=== PATIENT | female | born 1930 | race Caucasian/White ===

== ENCOUNTER 2018-03-31 15:57 | Inpatient (IN) | payer OTHER, BC ==
[~2018-03-31] VITALS: Ht 160 cm; Wt 80.8 kg
[2018-03-31 17:32] LABS: BASOPHIL (%) 0.2 % (0-1); BASOPHIL COUNT 0.1 K/uL (0-0.1); EOSINOPHIL (%) 0.7 % (0-5); EOSINOPHIL COUNT 0.1 K/uL (0-0.3); HEMATOCRIT 30.2 % (36.0-46.0); HEMOGLOBIN 9.6 G/DL (11.9-15.5); IMMATURE GRANULOCYTE (%) 0.7 % (0.0-0.7); LYMPHOCYTE (%) 6.4 % (15-42); LYMPHOCYTE COUNT 1.3 K/uL (1.0-2.8); MCH 29.4 PG (29.0-34.0); MCHC 31.8 G/DL (30.0-36.0); MCV 92.6 FL (83-99); MONOCYTE (%) 4.8 % (3-12); NEUTROPHIL (%) 87.2 % (45-76); NEUTROPHIL COUNT 18.2 K/uL (1.8-6.4); PLATELET COUNT 548 K/uL (156-360); RBC DIS.WIDTH-CV 16.7 % (11.8-14.6); RBC DIS.WIDTH-SD 56.7 % (39-53); RED BLOOD COUNT 3.26 M/uL (3.80-5.20); WHITE BLOOD COUNT 20.9 K/uL (4.1-10.2)
[2018-03-31 17:46] LABS: INTER. NORMALIZED RATIO 1.4
[2018-03-31 17:49] LABS: PTT 25.3 SEC (25-37)
[2018-03-31 17:56] LABS: CHLORIDE 96 mEq/L (99-109); SODIUM 135 mEq/L (136-147)
[2018-03-31 17:57] LABS: GLUCOSE 77 mg/dL (70-99)
[2018-03-31 18:01] LABS: CREATININE 2.5 mg/dL (0.6-1.3); GFR ESTIMATE (CALCULATED) 19 mL/min/
[2018-03-31 18:02] LABS: UREA NITROGEN (BUN) 22 mg/dL (9-23)
[2018-03-31] MEDS ORDERED: FLOMAX0.4 MG PO (21:02)
[2018-03-31] MEDS ORDERED: SERTRALINE HCL100 MG PO (21:02)
[2018-03-31] MEDS ORDERED: IRON325 M1 PO (21:02)
[2018-03-31] MEDS ORDERED: TRAMADOL HCL50 MG PO (21:04)
[2018-03-31] MEDS ORDERED: LABETALOL HCL200 MG PO (21:06)
[2018-03-31] MEDS ORDERED: NIFEDIPINE ER60 MG PO (21:07)
[2018-03-31] MEDS ORDERED: BASAGLAR K100 UNIT/1 SC (21:32)
[2018-03-31] MEDS ORDERED: ADULT ASPIRIN81 MG PO (21:32)
[2018-03-31] MEDS ORDERED: PROTONIX20 MG PO (21:33)
[2018-03-31] MEDS ORDERED: DILTIAZEM 24HR120 MG PO (21:33)
[2018-03-31] MEDS ORDERED: ASCORBIC ACID500 M3 PO (21:34)
[2018-03-31] MEDS ORDERED: SENNA PLUS TAB1 EACH PO ×2 (21:34)
[2018-03-31] MEDS ORDERED: ERGOCALCIF50000 UNIT PO (21:35)
[2018-03-31] MEDS ORDERED: COLACE100 MG PO (21:36)
[2018-03-31] MEDS ORDERED: ZINC SULFATE220 MG PO (21:36)
[2018-03-31] MEDS ORDERED: OXYCODONE HCL5 M1 PO (21:37)
[2018-03-31] MEDS ORDERED: HYDROCODON-ACE1 EAC7 PO (21:38)
[2018-03-31] MEDS ORDERED: TYLENOL REGULA325 MG PO (21:39)
[2018-03-31 22:38] LABS: ALBUMIN 2.2 g/dL (3.2-4.8)
[2018-03-31 22:39] LABS: AMYLASE 15 IU/L (1-118)
[2018-03-31 22:41] LABS: TOTAL PROTEIN 5.4 g/dL (6.4-8.3)
[2018-03-31 22:43] LABS: TOTAL BILIRUBIN 0.4 mg/dL (0.0-1.0)
[2018-03-31 22:44] LABS: ALKALINE PHOSPHATASE 129 IU/L (3-129); TROP-I INTERPRETATION NEGATIVE; TROPONIN-I 0.07 ng/mL (0.0-0.30)
[2018-03-31 22:46] LABS: AST (GOT) 16 IU/L (2-34); DIRECT BILIRUBIN 0.2 mg/dL (0.0-0.3)
[2018-03-31 22:47] LABS: ALT (GPT) 15 IU/L (3-49); LIPASE 3 U/L (1.0-51.0)
[2018-04-01] VITALS (7 sets, daily range): BP systolic 115–136; BP diastolic 58–76
[2018-04-01 06:16] LABS: BASOPHIL (%) 0.1 % (0-1); EOSINOPHIL (%) 0.1 % (0-5); HEMATOCRIT 31.6 % (36.0-46.0); HEMOGLOBIN 9.6 G/DL (11.9-15.5); LYMPHOCYTE (%) 5.6 % (15-42); LYMPHOCYTE COUNT 1.1 K/uL (1.0-2.8); MCH 29.2 PG (29.0-34.0); MCHC 30.4 G/DL (30.0-36.0); MONOCYTE (%) 5.1 % (3-12); NEUTROPHIL (%) 88.1 % (45-76); NEUTROPHIL COUNT 17.7 K/uL (1.8-6.4); PLATELET COUNT 622 K/uL (156-360); RBC DIS.WIDTH-CV 16.9 % (11.8-14.6); RBC DIS.WIDTH-SD 59.3 % (39-53); RED BLOOD COUNT 3.29 M/uL (3.80-5.20); WHITE BLOOD COUNT 20.1 K/uL (4.1-10.2)
[2018-04-01 06:39] LABS: CHLORIDE 94 MEQ/L (99-109); CREATININE 2.8 MG/DL (0.6-1.3); GFR ESTIMATE (CALCULATED) 17 mL/min/; POTASSIUM 4.5 MEQ/L (3.7-5.4); SODIUM 136 MEQ/L (136-147); UREA NITROGEN (BUN) 25 mg/dL (9-23); VANCOMYCIN, TROUGH 17.6 MCG/ML (10-20)
[2018-04-01 06:49] LABS: GLUCOSE 97 mg/dL (70-99)
[2018-04-01 09:15] LABS: GLUCOSE 105 mg/dL (70-99)
[2018-04-01 15:13] LABS: TROP-I INTERPRETATION NEGATIVE; TROPONIN-I 0.07 ng/mL (0.0-0.30)
[2018-04-02 03:41] VITALS: BP 117/56
[2018-04-02 06:17] LABS: BASOPHIL (%) 0.1 % (0-1); EOSINOPHIL (%) 0.6 % (0-5); EOSINOPHIL COUNT 0.1 K/uL (0-0.3); HEMATOCRIT 27.7 % (36.0-46.0); HEMOGLOBIN 8.6 G/DL (11.9-15.5); IMMATURE GRANULOCYTE (%) 0.7 % (0.0-0.7); LYMPHOCYTE (%) 7.9 % (15-42); LYMPHOCYTE COUNT 1.3 K/uL (1.0-2.8); MCH 29.7 PG (29.0-34.0); MCV 95.5 FL (83-99); MONOCYTE (%) 5.7 % (3-12); MONOCYTE COUNT 0.9 K/uL (0-0.8); NEUTROPHIL COUNT 13.6 K/uL (1.8-6.4); RBC DIS.WIDTH-CV 17.1 % (11.8-14.6); RBC DIS.WIDTH-SD 59.2 % (39-53)
[2018-04-02 06:43] LABS: CHLORIDE 97 MEQ/L (99-109); GFR ESTIMATE (CALCULATED) 25 mL/min/; GLUCOSE 93 mg/dL (70-99); POTASSIUM 3.8 MEQ/L (3.7-5.4); SODIUM 137 MEQ/L (136-147); UREA NITROGEN (BUN) 15 mg/dL (9-23); VANCOMYCIN, TROUGH 23.6 MCG/ML (10-20)
[2018-04-02 07:30] LABS: PLAT.SUFFICIENCY INCREASED; PLATELET CLUMPS PRESENT - PLATELET COUNT APPEARS INCREASED
[2018-04-02 07:32] VITALS: BP 107/55
[2018-04-02 07:45] LABS: PLATELET COUNT UNABLE TO REPORT K/uL (156-360)
[2018-04-02 16:10] VITALS: BP 178/00
[2018-04-02 17:45] VITALS: BP 114/53
[2018-04-02 20:00] VITALS: BP 98/52
[2018-04-03 00:07] VITALS: BP 97/56
[2018-04-03 03:46] VITALS: BP 92/61
[2018-04-03 07:15] VITALS: BP 129/56
[2018-04-03 08:51] LABS: BASOPHIL (%) 0.1 % (0-1); EOSINOPHIL (%) 0.6 % (0-5); EOSINOPHIL COUNT 0.1 K/uL (0-0.3); HEMATOCRIT 27.3 % (36.0-46.0); HEMOGLOBIN 8.3 G/DL (11.9-15.5); IMMATURE GRANULOCYTE (%) 0.9 % (0.0-0.7); LYMPHOCYTE (%) 7.2 % (15-42); LYMPHOCYTE COUNT 1.2 K/uL (1.0-2.8); MCH 28.9 PG (29.0-34.0); MCHC 30.4 G/DL (30.0-36.0); MCV 95.1 FL (83-99); MONOCYTE (%) 5.7 % (3-12); NEUTROPHIL (%) 85.5 % (45-76); NEUTROPHIL COUNT 14.6 K/uL (1.8-6.4); RBC DIS.WIDTH-CV 17.3 % (11.8-14.6); RED BLOOD COUNT 2.87 M/uL (3.80-5.20); WHITE BLOOD COUNT 17.1 K/uL (4.1-10.2)
[2018-04-03 08:54] LABS: PLATELET COUNT 502 K/uL (156-360)
[2018-04-03 09:29] LABS: CHLORIDE 96 MEQ/L (99-109); GFR ESTIMATE (CALCULATED) 16 mL/min/; POTASSIUM 3.5 MEQ/L (3.7-5.4); SODIUM 135 MEQ/L (136-147); UREA NITROGEN (BUN) 20 mg/dL (9-23); VANCOMYCIN, TROUGH 23.1 MCG/ML (10-20)
[2018-04-03 09:34] LABS: CREATININE 2.9 MG/DL (0.6-1.3); GLUCOSE 160 mg/dL (70-99)
[2018-04-03 12:54] VITALS: BP 145/58
[2018-04-03 17:00] VITALS: BP 142/56
[2018-04-03 19:47] VITALS: BP 134/63
[2018-04-04 00:34] VITALS: BP 121/84
[2018-04-04 03:00] VITALS: BP 104/51
[2018-04-04 07:13] LABS: BASOPHIL (%) 0.1 % (0-1); EOSINOPHIL (%) 0.5 % (0-5); EOSINOPHIL COUNT 0.1 K/uL (0-0.3); HEMATOCRIT 29.9 % (36.0-46.0); IMMATURE GRANULOCYTE (%) 1.1 % (0.0-0.7); LYMPHOCYTE (%) 6.2 % (15-42); LYMPHOCYTE COUNT 1.1 K/uL (1.0-2.8); MCH 29.3 PG (29.0-34.0); MCHC 30.1 G/DL (30.0-36.0); MCV 97.4 FL (83-99); MONOCYTE COUNT 1.2 K/uL (0-0.8); NEUTROPHIL (%) 85.1 % (45-76); NRBC (%) 0.2 /100 WBC (0-0); RBC DIS.WIDTH-CV 17.8 % (11.8-14.6); RBC DIS.WIDTH-SD 62.1 % (39-53); RED BLOOD COUNT 3.07 M/uL (3.80-5.20); WHITE BLOOD COUNT 17.6 K/uL (4.1-10.2)
[2018-04-04 07:22] LABS: ALBUMIN 2.1 G/DL (3.2-4.8); ALKALINE PHOSPHATASE 89 IU/L (3-129); ALT (GPT) 11 IU/L (3-49); AST (GOT) 18 IU/L (2-34); CHLORIDE 98 MEQ/L (99-109); GFR ESTIMATE (CALCULATED) 22 mL/min/; POTASSIUM 3.8 MEQ/L (3.7-5.4); SODIUM 138 MEQ/L (136-147); TOTAL BILIRUBIN 0.5 MG/DL (0.0-1.0); TOTAL PROTEIN 5.2 G/DL (6.4-8.3); UREA NITROGEN (BUN) 15 mg/dL (9-23)
[2018-04-04 07:28] LABS: CREATININE 2.2 MG/DL (0.6-1.3); GLUCOSE 91 mg/dL (70-99)
[2018-04-04 07:53] VITALS: BP 105/40
[2018-04-04 08:11] LABS: ANISOCYTOSIS 2+; MACROCYTES 2+; PLAT.SUFFICIENCY INCREASED; PLATELET CLUMPS PRESENT - PLATELET COUNT APPEARS INCREASED
[2018-04-04 08:12] LABS: PLATELET COUNT UNABLE TO REPORT K/uL (156-360)
[2018-04-04 11:07] LABS: C-REACTIVE PROTEIN 203.6 MG/L (0-10)
[2018-04-04 11:35] LABS: URIC ACID 3.4 mg/dL (3.1-9.2)
[2018-04-04 11:37] VITALS: BP 117/51
[2018-04-04 17:02] VITALS: BP 104/58
[2018-04-04 20:00] VITALS: BP 131/63
[2018-04-05] VITALS (17 sets, daily range): BP systolic 108–131; BP diastolic 48–78
[2018-04-05 06:07] LABS: IRON 28 MCG/DL (35-150); TRANSFERRIN SATUR. 30 % (20-55)
[2018-04-06] VITALS (10 sets, daily range): BP systolic 110–148; BP diastolic 49–69
[2018-04-06 05:50] LABS: BASOPHIL (%) 0.2 % (0-1); EOSINOPHIL (%) 1.1 % (0-5); EOSINOPHIL COUNT 0.2 K/uL (0-0.3); HEMATOCRIT 28.6 % (36.0-46.0); HEMOGLOBIN 8.7 G/DL (11.9-15.5); IMMATURE GRANULOCYTE (%) 0.8 % (0.0-0.7); LYMPHOCYTE (%) 8.9 % (15-42); LYMPHOCYTE COUNT 1.2 K/uL (1.0-2.8); MCH 29.8 PG (29.0-34.0); MCHC 30.4 G/DL (30.0-36.0); MCV 97.9 FL (83-99); MONOCYTE (%) 5.6 % (3-12); MONOCYTE COUNT 0.7 K/uL (0-0.8); NEUTROPHIL (%) 83.4 % (45-76); NEUTROPHIL COUNT 11.1 K/uL (1.8-6.4); NRBC (%) 0.5 /100 WBC (0-0); RBC DIS.WIDTH-CV 18.6 % (11.8-14.6); RBC DIS.WIDTH-SD 63.6 % (39-53); RED BLOOD COUNT 2.92 M/uL (3.80-5.20); WHITE BLOOD COUNT 13.3 K/uL (4.1-10.2)
[2018-04-06 05:53] LABS: PLATELET COUNT 115 K/uL (156-360)
[2018-04-06 06:40] LABS: CHLORIDE 97 MEQ/L (99-109); GFR ESTIMATE (CALCULATED) 13 mL/min/; POTASSIUM 4.4 MEQ/L (3.7-5.4); SODIUM 138 MEQ/L (136-147); VANCOMYCIN, TROUGH 26.8 MCG/ML (10-20)
[2018-04-06 06:45] LABS: GLUCOSE 120 mg/dL (70-99); UREA NITROGEN (BUN) 26 mg/dL (9-23)
[2018-04-06 06:46] LABS: CREATININE 3.5 MG/DL (0.6-1.3)
[2018-04-07 04:00] VITALS: BP 119/56
[2018-04-07 09:54] VITALS: BP 139/62
[2018-04-07 12:25] LABS: PREALBUMIN 9.3 mg/dL (10-40)
[2018-04-07 12:29] VITALS: BP 129/59
[2018-04-07 16:35] VITALS: BP 105/54
[2018-04-07 19:49] VITALS: BP 129/63
[2018-04-08 00:15] VITALS: BP 148/67
[2018-04-08 04:22] VITALS: BP 132/59
[2018-04-08 07:05] VITALS: BP 150/83
[2018-04-08 11:21] VITALS: BP 147/69
[2018-04-08 14:58] VITALS: BP 140/67
[2018-04-08 19:45] VITALS: BP 163/72
[2018-04-09] VITALS (8 sets, daily range): BP systolic 111–151; BP diastolic 50–91
[2018-04-10 04:02] VITALS: BP 135/62
[2018-04-10 05:45] LABS: BASOPHIL (%) 0.1 % (0-1); EOSINOPHIL COUNT 0.1 K/uL (0-0.3); HEMATOCRIT 31.4 % (36.0-46.0); HEMOGLOBIN 9.8 G/DL (11.9-15.5); IMMATURE GRANULOCYTE (%) 0.7 % (0.0-0.7); LYMPHOCYTE (%) 7.3 % (15-42); MCH 29.6 PG (29.0-34.0); MCHC 31.2 G/DL (30.0-36.0); MCV 94.9 FL (83-99); MONOCYTE (%) 7.5 % (3-12); NEUTROPHIL (%) 83.4 % (45-76); NEUTROPHIL COUNT 11.3 K/uL (1.8-6.4); NRBC (%) 0.1 /100 WBC (0-0); RBC DIS.WIDTH-CV 19.8 % (11.8-14.6); RBC DIS.WIDTH-SD 65.1 % (39-53); RED BLOOD COUNT 3.31 M/uL (3.80-5.20); WHITE BLOOD COUNT 13.6 K/uL (4.1-10.2)
[2018-04-10 05:46] LABS: PLATELET COUNT 475 K/uL (156-360)
[2018-04-10 06:19] LABS: CHLORIDE 95 MEQ/L (99-109); GFR ESTIMATE (CALCULATED) 11 mL/min/; GLUCOSE 146 mg/dL (70-99); POTASSIUM 5.1 MEQ/L (3.7-5.4); SODIUM 136 MEQ/L (136-147); UREA NITROGEN (BUN) 37 mg/dL (9-23)
[2018-04-10 06:22] LABS: CREATININE 4.2 MG/DL (0.6-1.3)
[2018-04-10 08:13] VITALS: BP 136/70
[2018-04-10 12:52] LABS: GLUCOSE 161 mg/dL (70-99)
[2018-04-10 15:50] VITALS: BP 144/77
[2018-04-10 23:24] VITALS: BP 170/67
[2018-04-11 08:27] VITALS: BP 111/52
[2018-04-11 15:47] VITALS: BP 156/66
[2018-04-11 20:20] VITALS: BP 106/60
[2018-04-11 22:33] VITALS: BP 145/78
[2018-04-12 08:24] VITALS: BP 125/53
[2018-04-12] MEDS ORDERED: DILTIAZEM 24HR240 MG PO (13:09)
[2018-04-12 15:35] VITALS: BP 121/80
== END 2018-04-12 16:22 | disposition hospice, home (50) | DRG 252 ==
LOC: EME 15:57 → CANRESERV 19:17 → 5SOUTH 21:10 → EDOF 21:10 → 4EAST 21:10 → 5SOUTH 22:32 → ENRESERV 04-02 14:08 → 4EAST 04-02 16:34 → ENRESERV 04-09 02:23 → 2EAST 04-09 13:54 → ENPENDDIS 04-12 14:52 → 2EAST 04-12 16:22
PROVIDERS: Emergency Medicine; Hospitalist; Internal Medicine; Internal Medicine Nephrology
PROC: 5A1D70Z Performance of Urinary Filtration, Intermittent, Less than 6 Hours Per Day (ICD-10-PCS; principal; 2018-04-02)
PROC: 047L3ZZ Dilation of Left Femoral Artery, Percutaneous Approach (ICD-10-PCS; 2018-04-02)
PROC: 047N3ZZ Dilation of Left Popliteal Artery, Percutaneous Approach (ICD-10-PCS; 2018-04-02)
PROC: 047D3EZ Dilation of Left Common Iliac Artery with Two Intraluminal Devices, Percutaneous Approach (ICD-10-PCS; 2018-04-02)
PROC: 047J3ZZ Dilation of Left External Iliac Artery, Percutaneous Approach (ICD-10-PCS; 2018-04-02)
PROC: B31H1ZZ Fluoroscopy of Right Upper Extremity Arteries using Low Osmolar Contrast (ICD-10-PCS; 2018-04-05)
DX: E11.52 Type 2 diabetes mellitus with diabetic peripheral angiopathy with gangrene (principal); Z51.5 Encounter for palliative care; I70.222 Atherosclerosis of native arteries of extremities with rest pain, left leg; Z66 Do not resuscitate; I70.0 Atherosclerosis of aorta; E11.22 Type 2 diabetes mellitus with diabetic chronic kidney disease; I12.0 Hypertensive chronic kidney disease with stage 5 chronic kidney disease or end stage renal disease; I48.2 Chronic atrial fibrillation; A41.9 Sepsis, unspecified organism; N18.6 End stage renal disease; L89.320 Pressure ulcer of left buttock, unstageable; L89.150 Pressure ulcer of sacral region, unstageable; L03.116 Cellulitis of left lower limb; L89.813 Pressure ulcer of head, stage 3; M10.9 Gout, unspecified; E11.621 Type 2 diabetes mellitus with foot ulcer; E11.628 Type 2 diabetes mellitus with other skin complications; L97.109 Non-pressure chronic ulcer of unspecified thigh with unspecified severity; E78.5 Hyperlipidemia, unspecified; I80.8 Phlebitis and thrombophlebitis of other sites; M65.9 Synovitis and tenosynovitis, unspecified; L97.529 Non-pressure chronic ulcer of other part of left foot with unspecified severity; K21.9 Gastro-esophageal reflux disease without esophagitis; R11.2 Nausea with vomiting, unspecified; Z99.2 Dependence on renal dialysis; Z85.3 Personal history of malignant neoplasm of breast; Z79.82 Long term (current) use of aspirin; Z79.01 Long term (current) use of anticoagulants; I89.0 Lymphedema, not elsewhere classified
CPT/HCPCS: 73610; 73706; 74175; 80048; 80053; 80076; 80202; 82150; 82948; 83540; 83605; 83690; 84134; 84466; 84484; 84550; 84999; 85025; 85027; 85610; 85730; 86140; 86850; 86900; 86901; 87040; 87070; 87075; 87077; 87186; 87205; 87493; 87801; 93005; 93306; 93971; 94799; 99281; 99285; A6214; C1725; C1769; C1876; C1887; C1894; J0881; J1170; J1644; J1815; J2060; J2250; J2270; J2405; J2543; J3010; J3370; J7040; J7050; P9047; S0020; S0028